=== PATIENT | male | born 1955 | race Caucasian/White ===

== ENCOUNTER 2018-08-02 14:29 | Emergency (ER) | payer BC, OTHER ==
[~2018-08-02] VITALS: Ht 182.9 cm; Wt 90.7 kg
--- NOTE | 2018-08-02 14:31 | NUR ---
Pt arrived to ED by RA, intubated with ETT 7.5, approx 24 cm @ lip.. Placed on vent with settings: A/C 20, Vt 600, FiO2 100% as ordered by .. Vent alarms on / audible and functioning at this time.. Will continue to monitor..
[2018-08-02] MEDS ORDERED: IV NORMAL SALINE 1000 ML BAG IV ONE (14:45)
[2018-08-02] MEDS ORDERED: ROSU5TAB PO (14:46)
[2018-08-02] MEDS ORDERED: MIDAZOLAM HCL 2 MG/2 ML VIAL IV ONE (15:15)
[2018-08-02] MEDS ORDERED: MIDAZOLAM HCL 2 MG/2 ML VIAL ONE (15:16)
[2018-08-02] MEDS ORDERED: PROPOFOL 100 ML ONE ×2 (15:40→18:14)
[2018-08-02] MEDS ORDERED: PROPOFOL 100 ML IV PRN ×2 (15:45→18:15)
[2018-08-02 16:03] LABS: ABG BASE EXCESS -1.8 mmol/L; ABG HCO3 22.8 mmol/L; ABG PCO2 38.3 mmHg (35.0-45.0); ABG PH 7.392 (7.350-7.450); ABG PO2 301.1 mmHg (75.0-100.0); ABG SITE RIGHT RADIAL; ABG TOTAL HEMOGLOBIN 14.4 G/dL (13.5-18.0); COHb 1.2 % (0.5-1.5); MetHb 0.3 % (0.0-1.5); O2Hb 98.2 % (94.0-97.0); VENT MODE VENT - A/C; VT, ABG 600 mL
[2018-08-02 16:05] LABS: BASOPHILS % (AUTO) 0.4 % (0.0-2.0); EOSINOPHILS # (AUTO) 0.1 K/uL (0.0-0.7); EOSINOPHILS % (AUTO) 1.2 % (0.0-7.0); HEMATOCRIT 41.7 % (36.7-47.1); HEMOGLOBIN 14.5 g/dL (12.5-16.3); LYMPHOCYTES # (AUTO) 1.3 K/uL (20.0-40.0); LYMPHOCYTES % (AUTO) 15.9 % (20.5-51.5); MEAN CORPUSCULAR HEMOGLOBIN 32.4 uug (23.8-33.4); MEAN CORPUSCULAR HGB CONC 35 g/dL (32.5-36.3); MEAN CORPUSCULAR VOLUME 93.4 fL (73.0-96.2); MONOCYTES # (AUTO) 0.4 K/uL (2.0-10.0); NEUTROPHILS # (AUTO) 6.3 K/uL (1.8-8.9); NEUTROPHILS % (AUTO) 77.5 % (38.5-71.5); PLATELET COUNT (AUTO) 207 K/uL (152-348); RED BLOOD CELL COUNT(AUTO) 4.46 MIL/uL (4.06-5.63); WHITE BLOOD COUNT (AUTO) 8.1 K/uL (3.6-10.2)
--- NOTE | 2018-08-02 16:05 | NUR ---
FiO2 lowered to 40% post ABG, SpO2 100%..
--- NOTE | 2018-08-02 16:10 | NUR ---
DIPROVAN EFFECTIVE, PT RESTING W/ BOTH EYES CLOSED. SOFT RESTRAINS REMOVED. FAMILY AT THE BEDSIDE.
[2018-08-02 16:13] LABS: CREATININE 1.2 mg/dL (0.6-1.3); POTASSIUM 3.3 mmol/L (3.5-5.1)
--- NOTE | 2018-08-02 16:16 | NUR ---
ACLS PROTOCOL FOLLOWED WHILE TRANSFERING TO CT.
--- NOTE | 2018-08-02 16:16 | NUR ---
ASSISSTED RT, CHANGE OF ADDRESS CLERK TO TX PT FOR CT.
[2018-08-02 16:25] LABS: BILIRUBIN,DIRECT 0.1 mg/dL (0.0-0.2); BILIRUBIN,TOTAL 0.6 mg/dL (0.2-1.0); TOTAL PROTEIN, SERUM 6.6 g/dL (6.4-8.2)
--- NOTE | 2018-08-02 16:45 | NUR ---
PT BACK FROM CT, CONTINUE W/ DIPROVAN DRIP AT 19 MCG/KG. PT IS SEDATED.VSS.
--- NOTE | 2018-08-02 16:45 | NUR ---
Pt taken to CT and back to ED without incident
--- NOTE | 2018-08-02 17:00 | NUR ---
received report from calos moses from .
[2018-08-02 17:01] LABS: *BILIRUBIN,URIN NEGATIVE (NEGATIVE); *BLOOD, URINE 3+ (NEGATIVE); *CLARITY,URINE CLOUDY (CLEAR); *KETONES,URINE TRACE (NEGATIVE); *UROBILINOGEN,URINE 0.2 E.U./dl (NORMAL); LEUKOCYTE ESTERASE ,URINE TRACE (NEGATIVE); NITRITE, URINE POSITIVE (NEGATIVE); UGLUCOSE NEGATIVE (NEGATIVE)
--- NOTE | 2018-08-02 17:10 | NUR ---
DR COBB SPOKE TO NEURO SURGEON, DR ARCOS AT [facility]. PT WILL BE TRANSFERED TO ICU TO [facility].
[2018-08-02] MEDS ORDERED: NORMAL SALINE FLUSH 10 ML DISP.SYRIN ONE (17:26)
[2018-08-02] MEDS ORDERED: SWABABLE VALVE TRANSFER SET EA MC ONE (17:26)
[2018-08-02] MEDS ORDERED: IV NORMAL SALINE 250 ML IV ONE (17:26)
[2018-08-02] MEDS ORDERED: IOHEXOL 350 100 ML INFUS..BTL ONE (17:26)
--- NOTE | 2018-08-02 17:30 | NUR ---
PT'S SON SIGNED CONSENT FOR CTA W/ CONTRAST.
[2018-08-02 17:33] LABS: *COLOR,URINE YELLOW (YELLOW)
[2018-08-02 17:34] LABS: WBC,URINE TNTC /HPF (0-3)
[2018-08-02 17:35] LABS: BACTERIA,URINE MODERATE /HPF (NONE SEEN)
--- NOTE | 2018-08-02 17:40 | NUR ---
PT OUT OF ER FOR CTA, ACCOMPAINED BY RT, FR[employer] MACHINE OPERATOR AND NURSING MONEY EXAMINER.
--- NOTE | 2018-08-02 17:40 | NUR ---
REPORT GIVEN TO CCT, RN/RT. CCT WILL ACCOMPAIN PT TO CT AND THEN TRANSFER PT FROM CT. ALL RECORDES PROVIDED.
--- NOTE | 2018-08-02 17:50 | NUR ---
Transferred to CT without incident.. Pt taken from CT table to ambulance [facility] and taken by ambulance to [facility].. Addendum: 08/02/18 at 1834 by NEYMAR SAMSON RT Correction: Pt taken by ambulance to [facility]..
--- NOTE | 2018-08-02 18:10 | NUR ---
REPORT LUIS TO DELIVERY REPRESENTATIVE(ANA) AT [facility].
--- NOTE | 2018-08-03 18:13 | NUR ---
Received a call from Silvia from [facility] who is aware that the patient is not in-house. Ref#[id number]
== END 2018-08-02 18:24 | disposition short-term general hospital (02) ==
LOC: ER 14:29
DX: R09.2 Respiratory arrest (principal); I62.9 Nontraumatic intracranial hemorrhage, unspecified; I60.9 Nontraumatic subarachnoid hemorrhage, unspecified
CPT/HCPCS: 31500; 36415; 36600; 70450; 70496; 71045; 80048; 80076; 81001; 83605; 83880; 84484; 85025; 85730; 87040 ×2; 87086; 93005; 99291; 99292; J2250; Q9967; 70030-TC; A4663; J3490; J7030; J7050